=== PATIENT | female | born 1960 | race Caucasian/White ===

== ENCOUNTER 2020-04-26 15:30 | Outpatient (CLI) | payer SELFPAY ==
[2020-04-26 16:20] LABS: Influenza Control Valid (Valid)
[2020-04-27 13:49] LABS: SARS-CoV-2 RNA PCR Negative
== END 2020-04-26 15:31 | disposition home or self-care (01) ==
LOC: CHSLAB 15:37
PROVIDERS: PCP Family Medicine; Visit Provider Family Medicine
DX: R05 Cough (principal); Z20.828 Contact with and (suspected) exposure to other viral communicable diseases
CPT/HCPCS: 87635; 87804; C9803; U0003